=== PATIENT | male | born 1955 | race Hispanic/Latino ===

== ENCOUNTER 2021-09-09 11:30 | Day surgery (SDC) | payer OTHER ==
[2021-09-06 12:31] LABS: Absolute Lymphocytes (CBC) 2.2 K/uL (0.7-4.9); Hematocrit 48.9 % (39.6-49.0); Lymphocytes % 26.1 % (15.3-44.8); MPV 9.6 fL (7.6-11.3)
[2021-09-06 12:36] LABS: Protime INR 0.97
--- NOTE | 2021-09-06 12:37 | RAD REPORT ---
EXAM DESCRIPTION: J[facility] Anibal (2 Views)09/06/2021 12:08 pm CLINICAL HISTORY: Preop for cardiac catheterization COMPARISON: None FINDINGS: The lungs appear clear of acute infiltrate. The heart is normal size. Postsurgical change s involve the chest IMPRESSION: No acute abnormalities displayed
[2021-09-09] MEDS ORDERED: NA CHLORIDE 0.9% 500 ML ONE (12:16)
[2021-09-09] MEDS ORDERED: HEPARIN 5000 UNIT/ML 1 ML VIAL ONE (12:51)
[2021-09-09] MEDS ORDERED: FENTANYL CITR 100 MCG/2 ML ONE (12:51)
[2021-09-09] MEDS ORDERED: MIDAZOLAM HCL 2 MG/2 ML INJ ONE (12:52)
[2021-09-09] MEDS ORDERED: NITROGLYCERIN 100 MCG/ML SYR (for cath lab use only) IV ONE (12:52)
[2021-09-09] MEDS ORDERED: VERAPAMIL HCL 10 MG/4 ML VIAL IV ONE (12:52)
[2021-09-09] MEDS ORDERED: ATROPINE SULF 1 MG/10 ML SYR IV ONE (12:52)
[2021-09-09] MEDS ORDERED: HEPA 1000U/500MLS 1,000 UNIT/500 ML BAG IV ONE (12:53)
[2021-09-09 13:18] VITALS: TEMP 97.2
[2021-09-09 16:42] VITALS: O2SAT 96
[2021-09-09 16:53] VITALS: BP 145/86
--- NOTE | 2021-09-10 00:22 | OP ---
Date of Procedure: 09/09/2021 Surgeon: CRISTHIAN SANON Procedure Performed: Distal aortogram with runoff. Indication: Peripheral vascular disease. Access: Right radial artery 6-Wallisian closed with TR band. Complications: None. Bleeding: Less than 10 mL. Total Sedation Time: 20 minutes. Description Of Procedure: After risks, benefits, alternatives were explained, the patient agreed to the procedure and signed informed consent. The patient was brought into the cardiac catheterization laboratory, prepped and draped in usual sterile fashion. We accessed right radial artery using pedia tric micropuncture kit and placed a 6-Wallisian slender sheath and took a 6-Wallisian long pigtail catheter into the distal aorta and performed distal aortogram and runoff and then removed the catheter. Pagan th was removed and placed TR band with good hemostasis. The patient was given fentanyl and Versed in incremental doses to achieve adequate moderate sedation throughout the procedure. Findings: 1.Distal aorta is patent. 2.The left common iliac artery is patent, right common colic artery has a stent that is patent. No ISR. 3.Bilateral femoral arteries are patent. No significant disease. 4.Bilateral profunda are patent, no disease. 5.Right SFA is patent with diffuse 10% to 20% stenosis and normal runoff below the knee. 6.Left SFA has severe distal 99% to 100% occlusion, likely to [employer], but very short with collaterals a nd runoff showing sluggish flow below the knee. Conclusion: Severe distal left SFA stenosis. Plan: For an intervention of right groin access to be done at [place] in the next 1-2 weeks. SR/MODL Voice ID: [id number] Report ID: [id number]
== END 2021-09-09 14:00 | disposition home or self-care (01) ==
LOC: CCL 11:30
PROVIDERS: ATTEND Internal Medicine
DX: I70.203 Unspecified atherosclerosis of native arteries of extremities, bilateral legs (principal); I70.92 Chronic total occlusion of artery of the extremities; I25.10 Atherosclerotic heart disease of native coronary artery without angina pectoris; I10 Essential (primary) hypertension; E11.9 Type 2 diabetes mellitus without complications; E78.5 Hyperlipidemia, unspecified; Z95.820 Peripheral vascular angioplasty status with implants and grafts; Z20.822 Contact with and (suspected) exposure to COVID-19
CPT/HCPCS: 93005; 85025; 80048; 36415; 85610; 82947; 85730; 71046; 36200; 75630; U0003; C1893; J2250; J3010; J7040; J1644